=== PATIENT | female | born 1990 | race Caucasian/White ===

== ENCOUNTER 2024-12-13 10:15 | Emergency (ER) | payer OTHER ==
[~2024-12-13] VITALS: Ht 147.3 cm; Wt 81.6 kg
[2024-12-13] MEDS ORDERED: IBUPROFEN 600 MG TABLET ONE (11:34)
[2024-12-13] MEDS ORDERED: PSEUDOEPHEDRINE HCL 30 MG TABLET ONE (11:35)
[2024-12-13] MEDS: PSEUDOEPHEDRINE HCL 30 MG TABLET PO ONE (11:38)
[2024-12-13] MEDS: IBUPROFEN 600 MG TABLET PO ONE (11:38)
[2024-12-13] MEDS ORDERED: PSEU120T99 PO (12:00)
[2024-12-13 12:15] VITALS: BP 105/67; TEMP 98; O2SAT 98
== END 2024-12-13 12:15 | disposition home or self-care (01) ==
LOC: ER 10:15
DX: B34.9 Viral infection, unspecified (principal); J34.89 Other specified disorders of nose and nasal sinuses; R05.9 Cough, unspecified; R09.81 Nasal congestion